=== PATIENT | female | born 1980 | race Caucasian/White ===

== ENCOUNTER 2016-10-16 14:25 | Emergency (ER) | payer OTHER ==
[2016-10-16 14:36] VITALS: BMI 30.9
--- NOTE | 2016-10-16 14:49 | PDOC ---
Rapid Medical Evaluation Chief Complaint: Pain Time Seen by Provider: 10/16/16 14:35 Medical Evaluation: Allergies Allergy/AdvReac Type Severity Reaction Status Date / Time No Known Allergies Allergy Verified 10/16/16 14:37 Vital Signs Temp Pulse Resp BP Pulse Ox 98 F 89 18 145/76 98 10/16/16 14:33 10/16/16 14:33 10/16/16 14:33 10/16/16 14:33 10/16/16 14:33 10/16/16 14:40 36 year old female, , 29 weeks with lmp 03/26/2016 presents complaining of lower back pain that radiated into buttocks. Denies fever, chill , vaginal bleeding or discharge. States pain started yesterday, worse when sitting down. PE: NAD unable to sit without discomfort no midline tenderness, discomfort with palpation bilateral lumbar region lungs CTA bilateral Heart S1S2 rrr A/P lower back pain -transferred to labor and delivery
[2016-10-16 15:12] VITALS: TEMP 97.7
[2016-10-16 16:00] LABS: URINE APPEARANCE CLEAR; URINE BILIRUBIN NEGATIVE (NEGATIVE); URINE BLOOD NEGATIVE (NEGATIVE); URINE COLOR YELLOW; URINE GLUCOSE (UA) NEGATIVE (NEGATIVE); URINE KETONE NEGATIVE (NEGATIVE); URINE NITRITE NEGATIVE (NEGATIVE); URINE PROTEIN NEGATIVE (NEGATIVE); URINE UROBILINOGEN NEGATIVE E.U./dl (0.2-1.0)
[2016-10-16 16:03] LABS: URINE LEUK ESTERASE TRACE (NEGATIVE)
[2016-10-16 16:04] VITALS: BP 109/59; PULSE 78
[2016-10-16 16:08] LABS: URINE BACTERIA RARE /hpf (NONE SEEN); URINE MUCUS RARE; URINE RBC 1 /hpf (0-3); URINE WBC 1 /hpf (3-5)
== END 2016-10-16 16:50 | disposition home or self-care (01) ==
LOC: JER 14:25
DX: O26.893 Other specified pregnancy related conditions, third trimester (principal); M54.5 Low back pain; Z3A.29 29 weeks gestation of pregnancy
CPT/HCPCS: 76801-TC; 76817-TC; 81003; 81015; 87086; 99281-25

== ENCOUNTER 2016-12-27 02:25 | Inpatient (IN) | payer OTHER ==
[2016-12-27] MEDS ORDERED: DEXTROSE 5%-LACTATED RINGERS 500 ML IV ONE ×2 (03:00→04:00)
[2016-12-27 03:54] LABS: BASOPHIL 0.4 % (0-2.0); EOSINOPHIL 0.6 % (0-4.5); MCH 29.8 pg (25.7-33.7); MCHC 33.9 g/dl (32.0-36.0); MEAN CELL VOLUME 87.7 fl (80-96); NEUTROPHILS 68.8 % (42.8-82.8); PLATELET COUNT 233 K/MM3 (134-434); RDW 13.5 % (11.6-15.6); WHITE BLOOD COUNT 7.2 K/mm3 (4.0-10.0)
[2016-12-27 04:17] LABS: INR 0.96 (0.82-1.09); PROTHROMBIN TIME (PATIENT) 10.5 SEC (9.98-11.88)
[2016-12-27 04:20] LABS: ACTIVATED PTT 26.6 SECONDS (26.9-34.4)
[2016-12-27 04:28] LABS: CALCIUM 8.6 mg/dL (8.5-10.1); CREATININE 0.5 mg/dL (0.55-1.02)
[2016-12-27] MEDS ORDERED: BUTORPHANOL TARTRATE 1 MG/ML VIAL IVPB ONE (05:30)
[2016-12-27] MEDS ORDERED: PROMETHAZINE HCL 25 MG/1 ML VIAL IVPB ONE (05:30)
[2016-12-27] MEDS: ELECTROLYTE-148 SOLN 1,000 ML IV SCH ×2 (06:00→09:52)
[2016-12-27 06:13] VITALS: BMI 32.4
[2016-12-27] MEDS ORDERED: FENTANYL/BUPIVACAINE/NS/PF - PCEA - 50 ML DISP.SYRIN EP SCH (08:00)
--- NOTE | 2016-12-27 08:23 | HP ---
Past Medical History - Admission Chief Complaint: c/o oonset of labor History of Present Illness: 36 y/o female presented to labor andelivery c/o onset of labor on evaluation was found to be laboring was admitted her antepartum course was unremarkable History Source: Patient Limitations to Obtaining History: No Limitations - Past Medical History Pulmonary: No: Asthma, Bronchitis, Cancer, COPD, O2 Dependent, Pneumonia, Previously Intubated, Pulmonary Embolus, Pulmonary Fibrosis, Sleep Apnea, Other Hepatobiliary: No: Cirrhosis, Cholelithiasis, Cholecystitis, Choledocholithiasis , Hepatitis A, Hepatitis B, Hepatitis C, Other Reproductive: No: Ectopic , Endometriosis, Fibroids, PID, Polycystic Ovary Syndrome, Postmenopausal, Other ...: 6 ...Para: 4 ...Term: 4 ...: 0 ...Spon : 1 ...Induced : 0 ...Multiple Gestation: 0 ...LMP: 03/26/16 ... Weeks Gestation by Dates: 39.3 ...EDC by Dates: 12/31/16 Heme/Onc: No: Anemia, B12 Deficiency, Bleeding Disorder, Cancer, Current Chemotherapy, Current Radiation Therapy, Hemochromatosis, Hypercoaguable State, Myeloproliferative Synd, Sickle Cell Disease, Sickle Cell Trait, Thrombocytopenia, Other Psych: No: Addictions, Anxiety, Bipolar, Depression, Panic, Psychosis, Schizophrenia, Other Musculoskeletal: No: Bursitis, Chronic low back pain, Hemiparesis, Hemiplegia, Osteoarthritis, Paraplegia, Other Rheumatology: No: Fibromyalgia, Gout, Lupus, Rheumatoid Arthritis, Sarcoidosis, Vasculitis, Other ENT: No: Allergic Rhinitis, Sinusitis, Other Endocrine: No: Owings's Disease, Robson's Disease, Diabetes Insipidus, Diabetes Mellitus, Hyperparathyroidism, Hyperthyroidism, Hypothyroidism, Osteopenia, SIADH, Other Dermatology: No: Basal Cell, Cellulitis, Eczema, Melanoma, Psoriasis, Squamous Cell, Other - Past Surgical History Past Surgical History: Yes: None Hx Myomectomy: No Hx Transabdominal Cerclage: No - Smoking History Smoking history: Never smoked Have you smoked in the past 12 months: No Aproximately how many cigarettes per day: 0 - Alcohol/Substance Use Hx Alcohol Use: No Home Medications - Allergies Allergies/Adverse Reactions: Allergies Allergy/AdvReac Type Severity Reaction Status Date / Time No Known Allergies Allergy Verified 12/27/16 06:56 - Home Medications Home Medications: Ambulatory Orders Vit/Iron Fumarate/FA [ Tablet] 1 tab PO DAILY 10/16/16 Family Disease History - Family Disease History Family History: Unremarkable Physical Exam - Maternity Vital Signs: Vital Signs Temperature 98.2 F 12/27/16 06:00 Pulse Rate 56 L 12/27/16 08:00 Respiratory Rate 20 12/27/16 08:00 Blood Pressure 126/71 12/27/16 08:00 O2 Sat by Pulse Oximetry (%) 100 12/27/16 08:00 Constitutional: Yes: Well Nourished, No Distress Eyes: Yes: WNL HENT: Yes: WNL Neck: Yes: WNL Cardiovascular: Yes: WNL Lungs: Clear to auscultation Breast(s): Yes: WNL - Abdominal Exam/OB Number of Fetuses: Single Presentation: Vertex Contractions: Yes Regularity: Regular Intensity: Moderate Monitor Mode: External Heart Rate Location: Midline Category: I Accelerations: Uniform Decelerations: None - Vaginal Exam/OB Vaginal Bleediing: No Speculum Exam: No Dilatation (cm): 1to2cm Effacement (%): 70% Amniotic Membrane Status: Intact Presentation: Vertex/Position Station: -4 - Physical Exam Musculoskeletal: Yes: WNL Extremities: Yes: WNL Edema: No Integumentary: Yes: WNL Deep Tendon Reflex Grade: Normal +2 ...Motor Strength: WNL Psychiatric: Yes: Alert, Oriented - Labs Lab Results: CBC, BMP 12/27/16 03:35 12/27/16 03:35 Assessment/Plan iup at 39 weeks onset of labor pain management as needed assist with labor and delivery
[2016-12-27] MEDS ORDERED: TUBERCULIN PPD 5 TU/0.1ML SYRINGE (IN PATIENT USE ONLY) ID ONE (10:00)
--- NOTE | 2016-12-27 10:07 | PN ---
Ante-Partal Exam - Subjective Subjective: Pt with SROM Vital Signs: Vital Signs Temperature 98.1 F 12/27/16 08:00 Pulse Rate 66 12/27/16 09:45 Respiratory Rate 18 12/27/16 09:45 Blood Pressure 88/37 12/27/16 09:45 O2 Sat by Pulse Oximetry (%) 98 12/27/16 09:45 Bleeding: No Headache: No Visual changes: No Right upper quadrant pain: No Pain (scale 1-10): 0 - Contractions Contractions: Yes Regularity: Regular Intensity: Unaware Monitor Mode: External - Exam during Labor Heart Rate: 150 Variability: Moderate Category: II Monitor Accelerations: Present Monitor Decelerations: Variable Dilatation (cm): 9.5 Effacement (%): 100 Amniotic Membrane Status: Ruptured Nitrazine Test: Positive Amniotic Fluid: Clear Presentation: Vertex Station: 0 - Assessment/Plan Assessment/Plan: 36 y/o wtih SIUP at 39+ weeks, labor - FHTS cat 1 - active labor, now 9.5cm dilated - will begin pushing once fully dilated - continue current care - anticipate
[2016-12-27] MEDS ORDERED: WITCH HAZEL 50% (TUCKS) 40 PAD/JAR PAD TP PRN (10:26)
[2016-12-27] MEDS ORDERED: BENZOCAINE 20% 57 GM BOTTLE TP PRN (10:26)
[2016-12-27] MEDS ORDERED: BENZOCAINE 28 GM HEMORRHOIDAL OINTMENT TP PRN (10:26)
[2016-12-27] MEDS ORDERED: METHYLERGONOVINE MALEATE 0.2 MG/1 ML AMP IM PRN (10:26)
[2016-12-27] MEDS ORDERED: oxyCODONE HCL 5 MG TABLET PO PRN (10:26)
[2016-12-27] MEDS ORDERED: BISACODYL 10 MG SUPP.RECT RC PRN (10:26)
--- NOTE | 2016-12-27 10:26 | PN ---
Delivery - Delivery Vaginal Delivery: No Problems Type of Anesthesia: Epidural Episiotomy/Laceration: None EBL (cc): 250 Delivery, Single - Stages of Labor Date of Delivery: 12/27/16 Time of Delivery: 10:11 Date Placenta Delivered: 12/27/16 Time Placenta Delivered: :15 Placenta: Yes: Spontaneous - Condition of Continuous Crusher Operator/Waste Transportation Technician Present: No Gender: Male Position: Right, OA - 1 Minute Total Score: 6 5 Minutes Total Score: 9 - Feeding Plan Initial Plan: Elected not to breastfeed exclusively throughout hospitalization Remarks - Remarks Remarks: Uncomplicated of baby boy from DINESH position tight nuchal cord noted, clamped and cut at perineum anterior shoulder (left) delivered with ease along with remainder of Apgars 6/9 no perineal/vaginal/cervical lacerations noted sponge count correct after delivery mom stable EBL 250cc baby to well baby nursery
[2016-12-27] MEDS ORDERED: OXYTOCIN 20 UNITS in 0.9% NS 1,000 ML IV SCH (10:30)
[2016-12-27] MEDS: IBUPROFEN 600 MG TABLET (FP) PO PRN (22:00)
[2016-12-27] MEDS: ACETAMINOPHEN 325 MG TABLET (FP) PO PRN (22:00)
[2016-12-28] MEDS: ACETAMINOPHEN 325 MG TABLET (FP) PO PRN ×2 (08:21→14:50)
[2016-12-28] MEDS: IBUPROFEN 600 MG TABLET (FP) PO PRN ×2 (08:22→14:50)
[2016-12-28 08:26] LABS: BASOPHIL 0.5 % (0-2.0); EOSINOPHIL 1.2 % (0-4.5); MCH 29.5 pg (25.7-33.7); MEAN CELL VOLUME 89.2 fl (80-96); MEAN PLT VOLUME 8.8 fl (7.5-11.1); NEUTROPHILS 60.3 % (42.8-82.8); PLATELET COUNT 175 K/MM3 (134-434); RDW 13.3 % (11.6-15.6); WHITE BLOOD COUNT 7.6 K/mm3 (4.0-10.0)
--- NOTE | 2016-12-28 11:31 | PN ---
Post Note - Post Date of Delivery: 12/27/16 Post Day: 1 Vital Signs: Vital Signs - 24 hr 12/27/16 12/27/16 12/27/16 11:45 12:30 18:00 Temperature 98.1 F 97.6 F 98.2 F Pulse Rate 58 L 66 70 Respiratory 18 20 20 Rate Blood Pressure 100/79 126/67 121/65 O2 Sat by Pulse 98 Oximetry (%) 12/27/16 12/28/16 12/28/16 22:00 01:16 05:45 Temperature 98.6 F 98.7 F 98.9 F Pulse Rate 76 69 76 Respiratory 18 18 18 Rate Blood Pressure 115/67 108/68 110/67 O2 Sat by Pulse Oximetry (%) 12/28/16 09:34 Temperature 99.2 F Pulse Rate 62 Respiratory 20 Rate Blood Pressure 133/74 O2 Sat by Pulse Oximetry (%) Labs: Laboratory Results - last 24 hr 12/27/16 12/28/16 03:35 07:10 WBC 7.6 RBC 3.56 L Hgb 10.5 L Hct 31.7 L MCV 89.2 MCHC 33.0 RDW 13.3 Plt Count 175 D MPV 8.8 Neutrophils % 60.3 Lymphocytes % 30.7 D Monocytes % 7.3 Eosinophils % 1.2 D Basophils % 0.5 RPR Titer Nonreactive - Subjective Subjective: No Complaints - Objective Afebrile: No Breast: Not engorged Abdomen: Soft, Non-tender Uterus: Fundus firm, Non-tender Vagina: Scant lochia Extremities: Non-tender - Assessment/Plan (1) Vaginal delivery Assessment: S/P Normal Plan: Routine Care
[2016-12-28] MEDS ORDERED: SENNOSIDES/DOCUSATE COMBO (SENNA PLUS) TABLET (UD) PO PRN (22:00)
--- NOTE | 2016-12-29 07:39 | DS ---
Physical Exam-PUMPER GAGER Vital Signs: Vital Signs Temperature 98.6 F 12/28/16 20:17 Pulse Rate 80 12/28/16 20:17 Respiratory Rate 20 12/28/16 20:17 Blood Pressure 126/74 12/28/16 20:17 O2 Sat by Pulse Oximetry (%) 98 12/27/16 11:45 Constitutional: Yes: Well Nourished, No Distress, Calm Eyes: Yes: Conjunctiva Clear, EOM Intact HENT: Yes: Atraumatic, Normocephalic Neck: Yes: Supple, Trachea Midline Cardiovascular: Yes: Regular Rate and Rhythm Respiratory: Yes: Regular, CTA Bilaterally Gastrointestinal: Yes: Normal Bowel Sounds, Soft ....Post : Yes: Uterus firm, Uterus non-tender Extremities: Yes: WNL Psychiatric: Yes: Alert, Oriented Labs: CBC, BMP 12/28/16 07:10 12/27/16 03:35 Delivery - Delivery Vaginal Delivery: No Problems Type of Anesthesia: Epidural Episiotomy/Laceration: None EBL (cc): 250 Delivery, Single - Stages of Labor Date 1st Stage Initiatied: 12/27/16 Time 1st Stage Initiated: 07:00 Date 2nd Stage Initiated: 12/27/16 Time 2nd Stage Initiated: 10:05 Date of Delivery: 12/27/16 Time of Delivery: 10:11 Time Placenta Delivered: 10:15 Placenta: Yes: Spontaneous - Condition of Fiscal Officer/Lead Java Programmer Present: No Gender: Male Weight: 8 lb 13 oz Position: Right, OA Total Hours ROM (Hrs/Mins): 18 minutes - 1 Minute Total Score: 9 5 Minutes Total Score: 5 - [place] Feeding Plan Initial Plan: Elected not to breastfeed exclusively throughout hospitalization Discharge Summary Reason For Visit: LABOR Procedures: Principal: normal Hospital Course: Unremarkable post recovery. Condition: Good - Instructions Diet, Activity, Other Instructions: Physical activity Resume your normal everyday activity as tolerated no heavy lifting or strenuous exercise until seen by your doctor. You may walk unlimited amounts and climb stairs. You may resume driving the car when you feel safe and comfortable behind the wheel. No sexual activity as instructed. You may shower, no soaking in tubs/baths/pools for 6 weeks. Diet There are no dietary restrictions. Eat healthy, high-fiber foods. Drink 6 to 8 glasses of liquid each day. This will assist in keeping your bowels regular. Pain management You may take Tylenolor Ibuprofen (for example, Motrin, Advil etc.) as needed for pain. Call MD for any of the following: Severe pain not relieved by medication Fever of 101 or higher Excessive bleeding or drainage on dressing Inability to urinate Referrals: Wendy Burciaga DO [Staff Physician] - Disposition: HOME - Home Medications Comprehensive Discharge Medication List: Ambulatory Orders Vit/Iron Fumarate/FA [ Tablet] 1 tab PO DAILY 10/16/16
[2016-12-29 10:22] VITALS: BP 127/65; PULSE 82; TEMP 98.2
== END 2016-12-29 13:00 | disposition home or self-care (01) | DRG 560 ==
LOC: JDEL 02:25 → JLDR 05:10 → J3W 12:14
PROVIDERS: ADMIT Obstetrics & Gynecology; ATTEND Obstetrics & Gynecology
PROC: 10E0XZZ Delivery of Products of Conception, External Approach (ICD-10-PCS; principal; 2016-12-27)
DX: O80 Encounter for full-term uncomplicated delivery (principal); Z3A.39 39 weeks gestation of pregnancy; Z37.0 Single live birth
CPT/HCPCS: 36415; 59409; 80048; 85025; 85610; 85730; 86593; 86850; 86900; 86901